=== PATIENT | female | born 1970 | race Caucasian/White ===

== ENCOUNTER 2017-08-19 15:57 | Observation (INO) | payer OTHER ==
[2017-08-19] MEDS ORDERED: ASPIRIN CHEW 81 MG TABLET PO STA (16:10)
--- NOTE | 2017-08-19 16:12 | ED Physician Documentation ---
PD HPI CHEST PAIN - Stated complaint Stated Complaint: CHEST PX/NAUSEA - Chief complaint Chief Complaint: Cardiac - History obtained from History obtained from: Patient - History of Present Illness Timing - onset: Other (She has been sick for a few days with cough and cold symptoms, with short of breath and may be running a fever the other night but that is gone. The last 2 days she has had increasing episodic nonexertional central chest pain. It is a sharp sensation in the front of the chest which is nonradiating last 1-2 minutes at a time. There is no particular pattern to it, does not seem to come with eating or with exertion. It has not been waking her up from sleep. She does have a pretty bad family history with regard to coronary disease, her father had an AL with a bypass in his 40s and his her brother also had an AL around age 50.) Review of Systems Ten Systems: 10 systems reviewed and negative Constitutional: reports: Reviewed and negative Throat: reports: Reviewed and negative Cardiac: reports: Chest pain / pressure, Palpitations. denies: Pedal edema, Calf pain Respiratory: reports: Cough. denies: Dyspnea GI: reports: Nausea. denies: Abdominal Pain PD PAST MEDICAL HISTORY - Past Medical History Past Medical History: Yes Endocrine/Autoimmune: HyPOthyroidism - Present Medications Home Medications: Ambulatory Orders Medication Instructions Recorded Confirmed Levothyroxine Sodium [Synthroid] 200 mcg PO DAILY 08/19/17 08/19/17 - Allergies Allergies/Adverse Reactions: Allergies Allergy/AdvReac Type Severity Reaction Status Date / Time meloxicam [From Mobic] Allergy Mild Unknown Verified 08/19/17 16:19 azithromycin [From Zithromax] Allergy Rash Verified 08/19/17 16:17 - Social History Does the pt drink ETOH?: No Does the pt have substance abuse?: No - Family History Family history: reports: CAD PD ED PE NORMAL - Vitals Vital signs reviewed: Yes - General General: Alert and oriented X 3, No acute distress - HEENT HEENT: PERRL, EOMI - Neck Neck: Supple, no meningeal sign, No bony TTP - Cardiac Cardiac: RRR, No murmur - Respiratory Respiratory: No respiratory distress, Clear bilaterally - Abdomen Abdomen: Soft, Non tender - Back Back: No CVA TTP, No spinal TTP - Extremities Extremities: No edema, No calf tenderness / cord - Neuro Neuro: Alert and oriented X 3, Normal speech - Psych Psych: Normal mood, Normal affect Results - Vitals Vitals: Vital Signs - 24 hr 08/19/17 16:01 Temperature 36.9 C Heart Rate 92 Respiratory 18 Rate Blood Pressure 128/89 H O2 Saturation 99 Oxygen O2 Source Room air - EKG (time done) 1602 Rate: Rate (enter#) (89) Rhythm: NSR Marana: Normal Intervals: Normal [place] QRS: Normal Ischemia: Normal ST segments. No: ST elevation c/w ischemia, ST depression, Q waves, T wave inversion Compare to prior EKG: Old EKG unavailable Computer interpretation: Agree with computer - Labs Labs: Laboratory Tests 08/19/17 08/19/17 08/19/17 16:13 16:13 16:13 WBC 9.9 RBC 4.69 Hgb 13.2 Hct 40.0 MCV 85.4 MCH 28.3 MCHC 33.1 RDW 13.7 Plt Count 354 MPV 6.7 L Neut # 6.7 H Lymph # 2.4 [place] # 0.5 Eos # 0.2 Baso # 0.1 Absolute Nucleated RBC 0.00 Nucleated RBC % 0.0 Sodium 137 Potassium 3.9 Chloride 105 Carbon Dioxide 24 Anion Gap 8.0 BUN 16 Creatinine 1.1 H Estimated GFR (MDRD) 53 L Glucose 121 H Calcium 9.0 Total Bilirubin 0.4 AST 19 ALT 19 Alkaline Phosphatase 73 Troponin I < 0.04 Total Protein 8.0 Albumin 3.9 Globulin 4.1 Albumin/Globulin Ratio 1.0 Lipase 21 L - Rads (name of study) 2v chest Radiology: EMP read contemporaneously (Bronchial wall thickening without pneumonia) PD MEDICAL DECISION MAKING - ED course ED course: 47-year-old woman with Crescendo atypical chest pain with pretty alarming family history. EKG is nonischemic and initial troponin negative. Given her risk factors I think it would be appropriate to place her in observation for formal rule out and the hospitalist was called at 4:49 PM. Departure - Departure Disposition: ED Place in Observation Clinical Impression: Chest pain Qualifiers: Chest pain type: unspecified Qualified Code(s): R07.9 - Chest pain, unspecified Condition: Stable
[2017-08-19 16:29] LABS: BASOPHILS # (AUTO) 0.1 10^3/uL (0.0-0.1); BASOPHILS % (AUTO) 0.7 %; EOSINOPHILS # (AUTO) 0.2 10^3/uL (0.0-0.7); HGB - HEMOGLOBIN 13.2 g/dL (12.0-16.0); LYMPHOCYTES # (AUTO) 2.4 10^3/uL (1.5-3.5); LYMPHOCYTES % (AUTO) 24.1 %; MEAN CORPUSCULAR HEMOGLOBIN 28.3 pg (27.0-31.0); MEAN CORPUSCULAR HGB CONC 33.1 g/dL (32.0-36.0); MEAN CORPUSCULAR VOLUME 85.4 fL (81.0-99.0); MEAN PLATELET VOLUME 6.7 fL (7.9-10.8); MONOCYTES # (AUTO) 0.5 10^3/uL (0.0-1.0); MONOCYTES % (AUTO) 5.2 %; NEUTROPHILS # (AUTO) 6.7 10^3/uL (1.5-6.6); RED BLOOD COUNT 4.69 10^6/uL (4.20-5.40); RED CELL DISTRIBUTION WIDTH 13.7 % (12.0-15.0); UNCORRECTED WHITE BLOOD COUNT 9.9 x10^3/uL; WHITE BLOOD COUNT 9.9 x10^3/uL (4.8-10.8)
[2017-08-19] MEDS ORDERED: ASPIRIN CHEW 81 MG TABLET ONE (16:29)
[2017-08-19 16:33] LABS: BILIRUBIN,TOTAL 0.4 mg/dL (0.2-1.0); CREATININE 1.1 mg/dL (0.4-1.0); POTASSIUM 3.9 mmol/L (3.5-5.0)
--- NOTE | 2017-08-19 16:35 | XRAY Preliminary Report ---
Exam: XR CHEST 2 VIEW PA/LAT IMPRESSION: 1. Bilateral central bronchial wall thickening could be compatible with reactive airways disease or b ronchitis. No radiographic evidence for superimposed pneumonia. [facility] SITE ID: [id number]
--- NOTE | 2017-08-19 16:38 | XRAY Report ---
EXAM: CHEST RADIOGRAPHY EXAM DATE: 08/19/2017 04:28 PM. CLINICAL HISTORY: Chest pain, cough. COMPARISON: None. TECHNIQUE: 2 views. FINDINGS: Lungs/Pleura: Bilateral central bronchial wall thickening could be compatible with reactive airways d isease or bronchitis. No evidence for superimposed focal airspace consolidation to suspect pneumonia. No pleural effusion or pneumothorax. Mediastinum: Heart and mediastinal contours are unremarkable. Other: None. IMPRESSION: 1. Bilateral central bronchial wall thickening could be compatible with reactive airways disease or b ronchitis. No radiographic evidence for superimposed pneumonia. [facility] Referring Provider Line: [phone] SITE ID: [id number]
[2017-08-19] MEDS ORDERED: TEMAZEPAM 15 MG CAPSULE PO PRN (17:19)
[2017-08-19] MEDS ORDERED: ACETAMINOPHEN 325 MG TABLET PO PRN (17:19)
[2017-08-19] MEDS ORDERED: SODIUM CHLORIDE FLUSH 0.9% 10 ML SYRINGE IVP PRN (17:19)
[2017-08-19] MEDS ORDERED: ONDANSETRON ODT 4 MG TABLET TL PRN (17:19)
--- NOTE | 2017-08-19 18:15 | HISTORY & PHYSICAL EXAMINATION ---
Chief Complaint - Chief Complaint Chief Complaint: chest pain Chest Pain Admission HPI - Admitted From Admitted from: ED - History Obtained From Records Reviewed: RN notes reviewed History obtained from: Patient Exam limitations: No limitations - History of Present Illness Severity at the worst: reports: Moderate Pain Quality: reports: Sharp, Crushing Context-Pain started w/: reports: Exertion. denies: Inspiration, Eating, Position Timing: reports: Abrupt onset, Intermittent Duration: reports: Minutes: (under 2 minutes with each episode.) Worsened by: reports: Movement (activity) Associated symptoms: reports: Shortness of air, Diaphoresis, Nausea, Feeling faint / dizzy, General Weakness, Palpitations, Cough HPI Comment/Other: Sonja Hare is a 47-year old female who is younger appearing than her stated age with excellent dentition. She has a past medical history of GERD, hypothyroidism, TARUN with [id number], nocturia, urinary incontinence, urinary frequency and tubal ligation. Patient came to the ED after having mid- sternal chest pain, with pressure that first began on (72 hours ago). This occurred while she [place]. The pain started as sharp, pressure pain in mid-sternum and then turned to an "electrical" sensation. Associated symptoms included feeling hot, clammy, tingling in bilateral legs, and nausea. She soon sat down and note the whole episode to last under 2 minutes. The nausea symptom was the most notable since she is not someone who becomes nauseated, most of her acquaintances tell her she has a strong stomach. On Sunday AM she woke up with a strong cough and has had symptoms of URI for about a week with a runny, stuffy nose, and sore throat. A similar episode happened a few months ago while she was in [facility] and had SOB with right arm pain after having traveled for several days in a row. She says she was worked up for chest pain and it was negative. We have faxed them for old records. She will be admitted for observation overnight. We are planning on a TTE, serial troponins, cholesterol , telemetry monitoring and carotid dopplers. We will decide after we obtain records whether a repeat stress test will be needed. Patient is now chest pain free, but instructed to tell her RN if symptoms come back. PMH/PSH - Past Medical History Cardiovascular: positive: High cholesterol, Angina, Arrhythmia Respiratory: positive: COPD Neuro: positive: None Endocrine/Autoimmune: positive: HyPOthyroidism GI: positive: GERD, Other (denies ever having a colonoscopy) RESEARCH HYDROLOGIST: positive: None : positive: Incontinence, Nocturia, Frequency. negative: Chronic bladder infection, Kidney stones HEENT: positive: None Psych: positive: None Musculoskeletal: positive: None Derm: positive: None MRSA Hx?: No - Past Surgical History /RESEARCH HYDROLOGIST: positive: Tubal ligation, Other Social & Family Hx - Living Situation Living Arrangement: At home Living Situation: With spouse/s.o. - Social History Does the pt smoke?: No Smoking Status: Former smoker (Age [age]) Does the pt drink ETOH?: No ETOH Use: Other (occasional, 2-4 per month.) Does the pt have substance abuse?: No - POLST Patient has POLST: No POLST Status: Full Code - Family History Family History: Mother: Alive and Well, Father: , CAD (Systemic schleroderma), [place], Brother: Alive and Well, [place] Meds/Allgy - Home Medications Home Medications: Ambulatory Orders Medication Instructions Recorded Confirmed Levothyroxine Sodium [Synthroid] 200 mcg PO DAILY 08/19/17 08/19/17 - Allergies Allergies/Adverse Reactions: Allergies Allergy/AdvReac Type Severity Reaction Status Date / Time meloxicam [From Mobic] Allergy Mild Unknown Verified 08/19/17 16:19 azithromycin [From Zithromax] Allergy Rash Verified 08/19/17 16:17 Review of Systems - Constitutional Constitutional: reports: Weakness, Diaphoresis - Eyes Eyes: reports: Blurred vision - Ears, Nose & Throat Ears, Nose & Throat: reports: Nasal congestion, Postnasal drainage, Other ( recent cough-URI) - Cardiovascular Cariovascular: reports: Irregular heart rate, Palpitations, Chest pain, Lightheadedness, Syncope, Exertional dyspnea, Decr. exercise tolerance - Respiratory Respiratory: reports: Cough, SOB with exertion - Gastrointestinal Gastrointestinal: reports: Abdominal distention, Nausea (recent and RARE for her , 1st time in her life.), Reflux/heartburn (history of GERD) - Genitourinary Genitourinary: reports: Dysuria, Frequency, Incontinence (fairly new.), Nocturia - Musculoskeletal Musculoskeletal: reports: Back pain, Muscle aches - Neurological Neurological: reports: Dizziness, Numbness - Psychiatric Psychiatric: reports: Anxiety - All Other Systems All Other Systems: reports: Reviewed and negative Exam - Vital Signs Reviewed Vital Signs: Yes Vital Signs: Vital Signs x48h Pulse Resp BP Pulse Ox 08/19/17 17:41 82 15 120/82 H 98 - Physical Exam General Appearance: positive: No acute distress, Alert Eyes Bilateral: positive: Normal inspection ENT: positive: ENT inspection nml, Pharynx nml, No signs of dehydration Neck: positive: Nml inspection, Thyroid nml, No JVD, Trachea midline Respiratory: positive: Chest non-tender, No respiratory distress, Breath sounds nml Cardiovascular: positive: Regular rate & rhythm, No murmur, No gallop Peripheral Pulses: positive: 2+ Abdomen: positive: Non-tender, No organomegaly, Nml bowel sounds, No distention Back: positive: Nml inspection Skin: positive: Color nml, No rash, Warm, Dry Extremities: positive: Non-tender, Full ROM, Nml appearance, No pedal edema Neurologic/Psychiatric: positive: Oriented x3, CN's nml (2-12), Motor nml, Sensation nml Reflexes: Bicep (R): 4+, Bicep (L): 4+, Knee (R): 4+, Knee (L): 4+, Ankle (R): 4 +, Ankle (L): 4+ Results - Lab Results Lab results reviewed: Yes Fish Bones: 08/19/17 16:13 08/19/17 16:13 - Diagnostic Imaging Results Diagnostic Imaging Results: positive: Prelim report reviewed, Final report reviewed Diagnostic Imaging Results Comments: Chest s-ray 08/19/17: FINDINGS: Lungs/Pleura: Bilateral central bronchial wall thickening could be compatible with reactive airways disease or bronchitis. No evidence for superimposed focal airspace consolidation to suspect pneumonia. No pleural effusion or pneumothorax. Mediastinum: Heart and mediastinal contours are unremarkable. IMPRESSION: 1. Bilateral central bronchial wall thickening could be compatible with reactive airways disease or bronchitis. No radiographic evidence for superimposed pneumonia. - EKG Results EKG Interpreted Independently: Yes EKG Comparison: positive: No prior EKG ARRA - Anticipated LOS Anticipated Stay Length: Less than 2 midnights - AMI - Statin at Admit Aspirin Prescribed on Admit: Yes - Stroke - Rehab Assessment Rehab services assessment to be ordered?: No Not Ordered - Medical Reason: Contraindicated - DVT/VTE - Prophylaxis VTE/DVT Device ordered at admit?: Yes VTE/DVT Prophylaxis med ordered at admit?: Yes CP/CHF Plan - Echo Plan to order an echo?: Yes - Plan Patient Problems: All Active Problems Chest pain (Acute) Plan: Chest pain, unspecified (R07.9)-Patient came to the ED after having mid-sternal chest pain, with pressure that first began on (72 hours ago). This occurred while she was walking [place] mall. 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 Associated symptoms included feeling hot, clammy, tingling in bilateral legs, and nausea. She soon sat down and notes the whole episode to last under 2 minutes. Several labs are ordered including GGT, TSH, seria troponins, D-dimer and cholesterol as part of this work up. Plan: We are attempting to obtain records from a [facility] since patient states she just had a stress test at that facility. Nitro SL, morphine IV and oxygen as needed for acute chest pain. Nursing is to obtain an EKG if chest pain symptoms are noticed. Hypothyroidism, unspecified (E03.9)- Patient takes 200mcg Synthroid daily. She admits to palpitations and fatigue, so a TSH was ordered. Plan: Obtain labs and may adjust dose depending on follow up labs. Obstructive sleep apnea (G47.33)- Patient states she has been prescribed a CPAP device but only wears it a few times per week. Plan: Oxygen overnight if patient is agreeable due to risk of altered airway clearance. Nocturia (R35.1)-Patient admits to waking up at least 2-3 times each night. In addition, patient states she has had problems with urgency, and stress incontinence. Patient has an intact uterus. Plan: Patient should seek further testing from her PCP. Code status: Full. DVT prophylaxis: SCDs and enoxaparin. -Over 60 minutes was spent on this admission including [id number] exam, patient/ education, and counseling/plan.
[2017-08-19 19:22] LABS: CHOLESTEROL 234 mg/dL; HDL CHOLESTEROL 51 mg/dL; LDL CHOLESTEROL,DIRECT 163 mg/dL
[2017-08-19 19:30] LABS: HEMOGLOBIN A1C 0.52 g/dL
[2017-08-19] MEDS ORDERED: MORPHINE 2 MG/ML SYRINGE IVP PRN (19:54)
[2017-08-19] MEDS ORDERED: NITROGLYCERIN SL 0.4 MG TABLET SL PRN (19:55)
[2017-08-19] MEDS ORDERED: ALPRAZolam 0.25 MG TABLET PO PRN (19:57)
[2017-08-19] MEDS: ASPIRIN EC 325 MG TABLET PO SCH (19:59)
[2017-08-19 20:57] LABS: HCG UR QUAL NEGATIVE
[2017-08-19] MEDS ORDERED: ATORVASTATIN 40 MG TABLET PO SCH (21:00)
[2017-08-19] MEDS: SODIUM CHLORIDE FLUSH 0.9% 10 ML SYRINGE IVP SCH (21:26)
[2017-08-19] MEDS ORDERED: BUTALB/ACETAM/CAFF 50/325/40MG TABLET PO PRN (21:39)
[2017-08-20] MEDS: SODIUM CHLORIDE FLUSH 0.9% 10 ML SYRINGE IVP SCH ×2 (06:48→13:40)
[2017-08-20] MEDS ORDERED: PANTOPRAZOLE 40 MG TABLET PO SCH (07:00)
--- NOTE | 2017-08-20 08:14 | DISCHARGE SUMMARY ---
Discharge Summary Admit Date: 08/19/17 Discharge Date: 08/20/17 Discharging Provider: MISSAEL White Primary Care Provider: Clarke Baker Code Status: Attempt Resuscitation Condition at Discharge: Good Discharge Disposition: 01 Home, Self Care - DIAGNOSES Admission Diagnoses: Chest pain, unspecified (R07.9) Hypothyroidism, unspecified (E03.9) Obstructive sleep apnea (G47.33) Nocturia (R35.1) [facility] 96 hour attestation: I believe in good ana based on my medical decision making that this patient is reasonably expected to be discharged and/or transferred to another hospital within 96 hours. Discharge Diagnoses with Status of Each Condition: Chest pain (R07.9) -ongoing, controlled. Hypothyroidism (E03.9) ongoing, stable. TARUN (obstructive sleep apnea) (G47.33)-ongoing, non-compliant. Nocturia more than twice per night (R35.1) -ongoing, stable. Hyperlipidemia with low HDL (E78.5)-ongoing, encouraged to treat. - HPI History of Present Illness: Sonja Hare is a 47-year old female who is younger appearing than her stated age with excellent dentition. She has a past medical history of GERD, hypothyroidism, TARUN with [id number]-[id number], nocturia, urinary incontinence, urinary frequency and tubal ligation. Patient came to the ED after having mid- sternal chest pain, with pressure that first began on (72 hours ago). This occurred while she was [place]. The pain started as sharp, pressure pain in mid-sternum and then turned to an "electrical" sensation. Associated symptoms included feeling hot, clammy, tingling in bilateral legs, and nausea. She soon sat down and note the whole episode to last under 2 minutes. The nausea symptom was the most notable since she is not someone who becomes nauseated, most of her acquaintances tell her she has a strong stomach. On Sunday AM she woke up with a strong cough and has had symptoms of URI for about a week with a runny, stuffy nose, and sore throat. A similar episode happened a few months ago while she was in [facility] and had SOB with right arm pain after having traveled for several days in a row. She says she was worked up for chest pain and it was negative. We have faxed them for old records. She will be admitted for observation overnight. We are planning on a TTE, serial troponins, cholesterol , telemetry monitoring and carotid dopplers. We will decide after we obtain records whether a repeat stress test will be needed. Patient is now chest pain free, but instructed to tell her RN if symptoms come back. - CONSULTS | PROCEDURES Procedures: Walking stress test with nuclear imaging. - HOSPITAL COURSE Hospital Course: Sonja was admitted for observation for acute chest pain, rule out coronary cause. She stated that she needed to get to work by 0530AM and wanted to make sure to be there on time. Medical and nursing staff convinced her to stay to provide her the best quality of care. MD Hospitalist, Dr. Conway also met with patient to re-assure her of the necessity of her upcoming stress test. She was monitored on telemetry overnight which showed no ectopy and a normal sinus rhythm in the 80's. She had no abnormal vital signs and remained afebrile. She was given a statin in the first evening, and refused it stating that "she will follow up with her PCP", after she leaves here. Dr. Clrake Baker's office was called and I spoke with her nurse to confirm dosing changes of her levothyroxine and latest lab results. Dr. Baker can expect a faxed copy of this discharge summary, and is to call with questions. Patient completed a stress test-results pending. She was transported via private car home with in stable condition with follow up recommendations. - ALLERGIES Allergies/Adverse Reactions: Allergies Allergy/AdvReac Type Severity Reaction Status Date / Time meloxicam [From Mobic] Allergy Mild Unknown Verified 08/19/17 16:19 azithromycin [From Zithromax] Allergy Rash Verified 08/19/17 16:17 - MEDICATIONS Home Medications: Ambulatory Orders Medication Instructions Recorded Confirmed Atorvastatin [Lipitor] 40 mg PO QPM #30 tablet 08/20/17 Levothyroxine [Synthroid] 88 mcg PO QDAC #30 tablet 08/20/17 Levothyroxine [Synthroid] 100 mcg PO QDAC #30 tablet 08/20/17 - PHYSICAL EXAM AT DISCHARGE General Appearance: positive: No acute distress, Alert Eyes Bilateral: positive: Normal inspection, PERRL ENT: positive: ENT inspection nml, Pharynx nml, No signs of dehydration Neck: positive: Nml inspection, Thyroid nml, No JVD, Trachea midline Respiratory: positive: Chest non-tender, No respiratory distress, Breath sounds nml Cardiovascular: positive: Regular rate & rhythm, No gallop Peripheral Pulses: positive: 2+ Abdomen: positive: Non-tender, No organomegaly, Nml bowel sounds, No distention Back: positive: Nml inspection Skin: positive: Color nml, No rash, Warm, Dry Extremities: positive: Non-tender, Full ROM, Nml appearance, No pedal edema Neurologic/Psychiatric: positive: Oriented x3, CN's nml (2-12), Motor nml, Sensation nml, Depressed mood/affect Reflexes: Bicep (R): 4+, Bicep (L): 4+ - LABS Result Diagrams: 08/19/17 16:13 08/19/17 16:13 - DIAGNOSTIC IMAGING Diagnostic Imaging Results: Final report reviewed Diagnostic Imaging Results Comments: Resting Echocardiogram: The LV size is normal. LV wall thickness is normal. Overall LV systolic function is normal with an EF of 65-70%. No regional wall motion abnormalities are seen. The RV size is normal, RA normal, no evidence of aortic stenosis. There is trace mitral regurgitation. Trace tricuspid regurgitation is present. Normal RV systolic pressure <35mmHg. The RVSP at rest is 24mmHg. The ascending aorta is dilated measuring up to 3.4cm. The IVC diameter appears reduced consistant with a volume contracted state. Chest x-ray 2-view 08/19/17: FINDINGS: Lungs/Pleura: Bilateral central bronchial wall thickening could be compatible with reactive airways disease or bronchitis. No evidence for superimposed focal airspace consolidation to suspect pneumonia. No pleural effusion or pneumothorax. Mediastinum: Heart and mediastinal contours are unremarkable. IMPRESSION: 1. Bilateral central bronchial wall thickening could be compatible with reactive airways disease or bronchitis. No radiographic evidence for superimposed pneumonia. Treadmill and nuclear stress test: Normal. - FOLLOW UP Follow Up: Please decrease your daily Synthroid dose to 188mcg daily. Your latest adjustment was made on 07/12/17 and you were instructed to re-check your TSH ~08/17/17. Your TSH is 0.19 (previously 0.06) which is considered low. After speaking with your clinic we determined your new dose to be cut back to 188mcg. Your cholesterol levels were found to be high, similar to your latest clinic results. The major use of statins is in the primary and secondary prevention of cardiovascular disease. Statins provide 3 major benefits and they include; Plaque stabilization- when plaques rupture, or break loose from the blood vessels they float away and can cause a blockage in the vessels that supply your heart with blood. Reduced inflammation- CRP levels are used to evaluate inflammation specific to predicting a progression of atherosclerosis. Reversal of endothelial dysfunction and decreased thrombogenicity- in other words, it reduces platelet activation (the sticky part of your blood). Please take a baby aspirin each day 81mg. Please see your PCP by the end of this week as a follow up to this hospitalization, and he is expecting you. Follow up with the sleep lab to help you be more compliant with wearing your sleep CPAP for obstructive sleep apnea. If this goes untreated, it has been found to cause heart rhythm problems as it restricts oxygen to the heart muscle. Further work-up may be necessary to evaluate the cause of your chest pain. - TIME SPENT Time Spent in Discharge (Minutes): 60
[2017-08-20] MEDS ORDERED: POLYETHYLENE GLYCOL 3350 17 GM PACKET PO SCH (09:00)
[2017-08-20] MEDS ORDERED: LEVOTHYROXINE 100 MCG TABLET PO SCH ×2 (09:00)
[2017-08-20] MEDS ORDERED: LEVOTHYROXINE 88 MCG TABLET PO SCH (09:00)
[2017-08-20] MEDS ORDERED: ENOXAPARIN 40 MG/0.4 ML SYRINGE SUBQ SCH (09:00)
[2017-08-20] MEDS: ASPIRIN EC 325 MG TABLET PO SCH (09:05)
--- NOTE | 2017-08-20 13:07 | Discharge Plan ---
Discharge Plan Disposition: 01 Home, Self Care Condition: Good Prescriptions: Atorvastatin [Lipitor] 40 mg PO QPM #30 tablet Levothyroxine [Synthroid] 100 mcg PO QDAC #30 tablet Levothyroxine [Synthroid] 88 mcg PO QDAC #30 tablet Diet: Cardiac Activity Restrictions: No Restrictions Shower Restrictions: No Driving Restrictions: No Weight Bearing: Full Weight Instruction Topics: Atorvastatin tablets, Levothyroxine tablets, Nitroglycerin sublingual tablets, Angina Unstable, Angina, Food Cholesterol, ED Diet Cholesterol Lowering Additional Instructions or Follow Up instructions: You came to the hospital after having acute chest pain. Given your risk factors , a coronary work up was necessary. The records from your medical care in [place] was reviewed. You completed a stress test with nuclear imaging. Both your treadmill and nuclear testing came back NORMAL. As per my conversation with Dr. Clarke Baker's clinic; Please decrease your daily Synthroid dose to 188mcg daily. Your latest adjustment was made on 07/12/17 and you were instructed to re-check your TSH ~08/17/17. Your TSH is 0.19 (previously 0.06) which is considered low. After speaking with your clinic we determined your new dose to be cut back to 188mcg. Your cholesterol levels were found to be high, similar to your latest clinic results. The major use of statins is in the primary and secondary prevention of cardiovascular disease. Statins provide 3 major benefits and they include; Plaque stabilization- when plaques rupture, or break loose from the blood vessels they float away and can cause a blockage in the vessels that supply your heart with blood. Reduced inflammation- CRP levels are used to evaluate inflammation specific to predicting a progression of atherosclerosis. Reversal of endothelial dysfunction and decreased thrombogenicity- in other words, it reduces platelet activation (the sticky part of your blood). Please take a baby aspirin each day 81mg. Please see your PCP by the end of this week as a follow up to this hospitalization, and he is expecting you. Follow up with the sleep lab to help you be more compliant with wearing your sleep CPAP for obstructive sleep apnea. If this goes untreated, it has been found to cause heart rhythm problems as it restricts oxygen to the heart muscle. Further work-up may be necessary to evaluate the cause of your chest pain. No Smoking: If you smoke, Please STOP! Call for help. Follow-up with: CLARKE BAKER [Primary Care Provider] -
--- NOTE | 2017-08-20 17:01 | PROCEDURE REPORT ---
Hospitalist Procedure Note - Procedure Note Procedure Note: PATIENT NAME: Sonja Hare : 68 PROCEDURE DATE: 08/20/17 After signing informed consent, the patient underwent standard treadmill stress testing using a 3-minute stage Manjinder protocol. Resting heart rate 97. Peak heart rate 152 (87% predicted maximum heart rate for age). Resting blood pressure 108/65. Peak blood pressure 144/55. RPP 21,888. The patient exercised for 5 minutes and 13 seconds. She achieved 7 mets. Patient had mild shortness of breath, no chest pain or nausea. EKG at rest: Normal sinus rhythm, WNL EKG at peak: Upsloping inferior ST scooping depressions (not specific for ischemia) IMPRESSION: Fair aerobic exercise tolerance. No reproducing of the patient's chest pain. No ischemic ST segment changes at a good target heart rate. Nuclear images reported separately.
--- NOTE | 2017-08-20 17:07 | Nuclear Medicine Prelim Report ---
Exam: NM MYOCARDIAL PERFUSION STR/RST IMPRESSION: 1. No fixed or reversible perfusion defect. 2. Normal left ventricular ejection fraction of 67%. 3. Normal segmental and global wall motion. 4. Normal left ventricular cavity size, no change with stress. [facility] SITE ID: [id number]
--- NOTE | 2017-08-20 17:10 | Nuclear Medicine Report ---
EXAM: SINGLE-ISOTOPE EXERCISE STRESS TEST. SINGLE-ISOTOPE AND ONE-DAY REST/STRESS MYOCARDIAL PERFUSION SCAN S WITH TOMOGRAPHIC IMAGING, QUANTITATIVE ANALYSIS, WALL MOTION ANALYSIS AND CALCULATION OF EJECTION F RACTION. EXAM DATE: 08/20/2017 03:33 PM. CLINICAL HISTORY: Chest pain COMPARISON: None. TECHNIQUE: A rest myocardial perfusion scan was done with tomography after the intravenous administration of 10. 2 mCi Tc-99m sestamibi. The maximum heart rate was 152 bpm, which was 90% of the maximum predicted heart rate of 170 bpm. At approximately peak heart rate, 42.8 mCi of Tc-99m sestamibi was injected for stress myocardial perfu kristina scan. Motion correction was applied when appropriate. Gated tomographic images were obtained for wall motion analysis and computation of left ventricular e jection fraction. FINDINGS: No fixed or reversible perfusion defect. Normal cardiac wall motion. Normal left ventricular chamber size. Cardiac ejection fraction is 67%. IMPRESSION: 1. No fixed or reversible perfusion defect. 2. Normal left ventricular ejection fraction of 67%. 3. Normal segmental and global wall motion. 4. Normal left ventricular cavity size, no change with stress. [facility] Referring Provider Line: [phone] SITE ID: [id number]
[2017-08-20 17:27] VITALS: BP 115/80
== END 2017-08-20 17:15 | disposition home or self-care (01) ==
LOC: ED 15:57 → OBS 17:19
PROVIDERS: ADMIT Nurse Practitioner; ATTEND Nurse Practitioner
DX: R07.9 Chest pain, unspecified (principal); E03.9 Hypothyroidism, unspecified; G47.33 Obstructive sleep apnea (adult) (pediatric); E78.00 Pure hypercholesterolemia, unspecified; R35.1 Nocturia; R32 Unspecified urinary incontinence; R35.0 Frequency of micturition; Z87.891 Personal history of nicotine dependence; Z82.49 Family history of ischemic heart disease and other diseases of the circulatory system; Z79.899 Other long term (current) drug therapy
CPT/HCPCS: 36415; 71020; 78452; 80053; 80306; 81025; 82465; 82553; 82977; 83036; 83690; 83718; 83721; 83735; 83880; 84100; 84439; 84443; 84481; 84484; 85025; 85379; 93005; 93017; 93306; 99283; 99285; A9270; A9500; G0378; 99284

== ENCOUNTER 2018-07-03 12:26 | Outpatient (CLI) | payer OTHER | END 2018-07-03 12:27 | disposition critical access hospital (66) | LOC: EMS 12:26 | PROVIDERS: ATTEND Surgery | DX: R10.13 Epigastric pain (principal); R21 Rash and other nonspecific skin eruption | CPT/HCPCS: A0425; A0427 ==

== ENCOUNTER 2018-07-03 12:49 | Emergency (ER) | payer OTHER ==
[2018-07-03] MEDS ORDERED: ASPIRIN CHEW 81 MG TABLET PO STA (13:57)
[2018-07-03] MEDS ORDERED: MORPHINE 2 MG/ML CARPUJECT IVP STA (13:58)
[2018-07-03] MEDS ORDERED: ONDANSETRON 4 MG/2 ML VIAL IVP STA (13:58)
--- NOTE | 2018-07-03 14:02 | ED Physician Documentation ---
History of Present Illness - Stated complaint Stated Complaint: HEARTBURN - Chief complaint Chief Complaint: General - Additonal information Additional information: hx from pt 47 f no personal hx CAD but prior smoker and HLD and strong fhx CAD (dad brother in 40s) denies preg sp tubal no recent travel ate nut butter at 9 am at 11 AM developed excruciating burning low chest upper abd pain radiating between her shoulder blades with dizziness flushing to face, itchy hands and soa no known allergen etc sx still present but milder no fever no NVD now but has last week no leg swelling Review of Systems Constitutional: denies: Fever, Chills Cardiac: reports: Chest pain / pressure Respiratory: reports: Dyspnea GI: reports: Abdominal Pain. 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 : Incontinence, Nocturia, Frequency HEENT: None Psych: None Musculoskeletal: None Derm: None - Past Surgical History Past Surgical History: Yes /EQUIPMENT OPERATION INSTRUCTOR: Tubal ligation, Other - Present Medications Home Medications: Ambulatory Orders Medication Instructions Recorded Confirmed Levothyroxine [Synthroid] 200 mcg PO QDAC 07/03/18 Sucralfate 1 gm PO ACHS #120 tablet 07/03/18 raNITIdine [Zantac] 150 mg PO BID #60 tablet 07/03/18 - Allergies Allergies/Adverse Reactions: Allergies Allergy/AdvReac Type Severity Reaction Status Date / Time meloxicam [From Mobic] Allergy Mild Unknown Verified 08/19/17 16:19 azithromycin [From Zithromax] Allergy Rash Verified 07/03/18 12:55 - Social History Does the pt smoke?: No Smoking Status: Former smoker Does the pt drink ETOH?: Yes Does the pt have substance abuse?: No - Immunizations Immunizations are current?: No Immunizations: TDAP >10years/unknown - POLST Patient has POLST: No POLST Status: Full Code PD ED PE NORMAL - Vitals Vital signs reviewed: Yes - General General: Alert and oriented X 3 - HEENT HEENT: PERRL - Neck Neck: Supple, no meningeal sign - Cardiac Cardiac: RRR - Respiratory Respiratory: No respiratory distress, Clear bilaterally - Abdomen Abdomen: Soft, Non tender - Derm Derm: Normal color - Extremities Extremities: No deformity, No edema, No calf tenderness / cord - Neuro Neuro: Alert and oriented X 3, Other (strong equal pulses) Results - Vitals Vitals: Vital Signs - 24 hr 07/03/18 07/03/18 07/03/18 12:50 13:44 16:48 Temperature 36.5 C Heart Rate 85 70 66 Respiratory 18 19 Rate Blood Pressure 129/90 H 128/83 H O2 Saturation 100 97 07/03/18 07/03/18 07/03/18 17:02 17:39 17:41 Temperature 36.0 C L Heart Rate 71 64 Respiratory 13 15 Rate Blood Pressure 123/74 O2 Saturation 100 99 Oxygen O2 Source Room air - EKG (time done) 1254 Rate: Rate (enter#) (76) Rhythm: NSR [place]: Normal Intervals: Normal ND QRS: Normal Ischemia: Normal ST segments - Labs Labs: Laboratory Tests 07/03/18 07/03/18 07/03/18 14:13 14:13 14:13 WBC 8.3 RBC 4.37 Hgb 12.5 Hct 37.0 MCV 84.6 MCH 28.7 MCHC 33.9 RDW 15.1 H Plt Count 314 MPV 6.7 L Neut # (Auto) 6.2 Lymph # (Auto) 1.4 L [place] # (Auto) 0.4 Eos # (Auto) 0.1 Baso # (Auto) 0.1 Absolute Nucleated RBC 0.00 Nucleated RBC % 0.0 Sodium 136 Potassium 3.8 Chloride 104 Carbon Dioxide 24 Anion Gap 8.0 BUN 17 Creatinine 0.6 Estimated GFR (MDRD) 107 Glucose 97 Calcium 8.7 Total Bilirubin 0.2 AST 16 ALT 16 Alkaline Phosphatase 69 Troponin I < 0.04 Total Protein 7.5 Albumin 3.8 Globulin 3.7 Albumin/Globulin Ratio 1.0 Lipase 24 07/03/18 15:10 WBC RBC Hgb Hct MCV MCH MCHC RDW Plt Count MPV Neut # (Auto) Lymph # (Auto) [place] # (Auto) Eos # (Auto) Baso # (Auto) Absolute Nucleated RBC Nucleated RBC % Sodium Potassium Chloride Carbon Dioxide Anion Gap BUN Creatinine Estimated GFR (MDRD) Glucose Calcium Total Bilirubin AST ALT Alkaline Phosphatase Troponin I < 0.04 Total Protein Albumin Globulin Albumin/Globulin Ratio Lipase PD MEDICAL DECISION MAKING - ED course ED course: EKG no acute ischemia trop # 1 neg heart score 3 so lower risk I reviewed her CP admit from 08/26 and she had a normal echo, neg EST, and neg nuc stress test - does not completely rule out ACS but is reassuring - so got a 4 hr trop in the ER and it was neg too considered biliary colic / pearl - abd sono contracted GB so limited but no stones, abn ducts or pericholecystic fluid seen planned to get CTA chest abd to evla aorta as well as further eval GB but pt states she does not want a CT if at all possible she states that she had a CT chest just a few months ago that did not show an aneurysm which is reassuring (not done here) - also she has had several prior CTs, one for PE in [place] and another of her head for unilateral tinnitus I explained we could do CXR instead whcih would be less radiation but it would not be as accurate evaluating the aorta she prefers just a CXR CXR nl - tight mediastinum, no cap or effusion PERC neg too so after an extensive ED work up it seems unliekly that this CP is ACS PE or aneurysm/dissection she describes the pain as burning so I had ordered pepcidc and a GI cocktail but nirse now tells me pt refused those medications Departure - Departure Disposition: Home, Self Care Clinical Impression: Chest pain Qualifiers: Chest pain type: unspecified Qualified Code(s): R07.9 - Chest pain, unspecified Condition: Good Instructions: ED Chest Pain Atypical Unkn Cause, ED GERD Follow-Up: SONIA PLUMMER [Primary Care Provider] - Prescriptions: raNITIdine [Zantac] 150 mg PO BID #60 tablet Sucralfate 1 gm PO ACHS #120 tablet Comments: All of your tests are very reassuring. It does not look like this pain was due to a heart attack, a blood clot in your lungs, a tear or aneurysm of your aorta or gallbladder problems. It might be heart burn - you did feel better after medications for heartburn In any case, given the reassuring work up, I think it is safe for you to go home. Please follow up with your PMD for a recheck before the weekend. Return if worse Forms: Activity restrictions Discharge Date/Time: 07/03/18 17:43
[2018-07-03 14:24] LABS: BASOPHILS # (AUTO) 0.1 10^3/uL (0.0-0.1); BASOPHILS % (AUTO) 1.4 %; EOSINOPHILS # (AUTO) 0.1 10^3/uL (0.0-0.7); EOSINOPHILS % (AUTO) 0.9 %; HGB - HEMOGLOBIN 12.5 g/dL (12.0-16.0); LYMPHOCYTES # (AUTO) 1.4 10^3/uL (1.5-3.5); LYMPHOCYTES % (AUTO) 17.4 %; MEAN CORPUSCULAR HEMOGLOBIN 28.7 pg (27.0-31.0); MEAN CORPUSCULAR HGB CONC 33.9 g/dL (32.0-36.0); MEAN CORPUSCULAR VOLUME 84.6 fL (81.0-99.0); MEAN PLATELET VOLUME 6.7 fL (7.9-10.8); MONOCYTES # (AUTO) 0.4 10^3/uL (0.0-1.0); MONOCYTES % (AUTO) 5.3 %; NEUTROPHILS # (AUTO) 6.2 10^3/uL (1.5-6.6); PLT - PLATELET COUNT 314 10^3/uL (130-450); RED BLOOD COUNT 4.37 10^6/uL (4.20-5.40); RED CELL DISTRIBUTION WIDTH 15.1 % (12.0-15.0); WHITE BLOOD COUNT 8.3 x10^3/uL (4.8-10.8)
[2018-07-03 14:42] LABS: ALBUMIN 3.8 g/dL (3.2-5.5); BILIRUBIN,TOTAL 0.2 mg/dL (0.2-1.0); CALCIUM 8.7 mg/dL (8.5-10.3); CREATININE 0.6 mg/dL (0.4-1.0); TOTAL PROTEIN 7.5 g/dL (6.7-8.2)
[2018-07-03] MEDS ORDERED: HYDROcod/ACETAM 5/325 MG TABLET PO STA (14:42)
--- NOTE | 2018-07-03 14:45 | Ultrasound Report ---
Reason: epigastric pain to back after nut butter Procedure Date: 07/03/2018 Accession Number: [id number] / [id number] Procedure: US - Abdomen Limited CPT Code: FULL RESULT: EXAM: ABDOMEN ULTRASOUND LIMITED, RUQ EXAM DATE: 07/03/2018 02:34 PM. CLINICAL HISTORY: Epigastric pain to back after nut butter. COMPARISON: None available. TECHNIQUE: Real-time scanning was performed with static images obtained. FINDINGS: Liver: Normal in size and echotexture. 16.6 cm. Main portal vein flow: Hepatopetal. Gallbladder: The gallbladder is contracted. No definite stones visualized. No pericholecystic fluid. Sonographic Barillas's sign is negative. Biliary System: CBD measures 3 mm. No intrahepatic or extrahepatic ductal dilatation. Other: The right kidney measures 9.9 cm in length. No hydronephrosis or visualized nephrolithiasis. IMPRESSION: Contracted appearance of the gallbladder, which limits evaluation. No definite cholelithiasis or evidence of acute cholecystitis. [facility]
[2018-07-03] MEDS ORDERED: IOPAMIDOL-300 100 ML VIAL ONE (15:04)
[2018-07-03] MEDS ORDERED: MAG HYDROX/AL HYDROX/SIMETH 30 ML UDC PO STA ×2 (15:14→16:54)
[2018-07-03] MEDS ORDERED: LIDOCAINE VISCOUS 2% 15 ML UDC MM STA ×2 (15:14→16:53)
[2018-07-03] MEDS ORDERED: FAMOTIDINE 20 MG/50 ML 50 ML IV ONE (15:14)
--- NOTE | 2018-07-03 15:38 | XRAY Report ---
Reason: cp Procedure Date: 07/03/2018 Accession Number: [id number] / [id number] Procedure: XR - Chest 2 View X-Ray CPT Code: 41566 FULL RESULT: EXAM: CHEST RADIOGRAPHY EXAM DATE: 07/03/2018 03:26 PM. CLINICAL HISTORY: Chest pain and heartburn COMPARISON: CHEST 2 VIEW PA/LAT 08/19/2017 4:16 PM. TECHNIQUE: 2 views. FINDINGS: Lungs/Pleura: No focal opacities evident. No pleural effusion. No pneumothorax. Normal volumes. Mediastinum: Heart and mediastinal contours are unremarkable. Other: Rounded sclerotic lesion seen at the left proximal humerus, unchanged, could represent enchondroma. IMPRESSION: No acute cardiopulmonary disease seen. [facility]
[2018-07-03 17:44] VITALS: BP 123/74
[2018-07-03] MEDS ORDERED: FAMOTIDINE 20 MG/50 ML 50 ML IV SCH (21:00)
== END 2018-07-03 17:43 | disposition home or self-care (01) ==
LOC: EDUNIT# → ED 12:49
DX: R07.9 Chest pain, unspecified (principal); E78.00 Pure hypercholesterolemia, unspecified; Z82.49 Family history of ischemic heart disease and other diseases of the circulatory system; Z87.891 Personal history of nicotine dependence
CPT/HCPCS: 36415; 71046; 76705; 80053; 83690; 84484; 85025; 93005; 96365; 99283; 99284; A9270

== ENCOUNTER 2018-10-16 11:05 | Emergency (ER) | payer OTHER ==
[2018-10-16 11:37] LABS: BASOPHILS # (AUTO) 0.1 10^3/uL (0.0-0.1); BASOPHILS % (AUTO) 1.1 %; EOSINOPHILS # (AUTO) 0.2 10^3/uL (0.0-0.7); EOSINOPHILS % (AUTO) 2.3 %; HGB - HEMOGLOBIN 12.9 g/dL (12.0-16.0); LYMPHOCYTES # (AUTO) 1.4 10^3/uL (1.5-3.5); LYMPHOCYTES % (AUTO) 21.9 %; MEAN CORPUSCULAR HEMOGLOBIN 28.3 pg (27.0-31.0); MEAN CORPUSCULAR HGB CONC 33.3 g/dL (32.0-36.0); MEAN CORPUSCULAR VOLUME 84.8 fL (81.0-99.0); MEAN PLATELET VOLUME 6.7 fL (7.9-10.8); MONOCYTES # (AUTO) 0.4 10^3/uL (0.0-1.0); MONOCYTES % (AUTO) 6.4 %; NEUTROPHILS # (AUTO) 4.5 10^3/uL (1.5-6.6); NEUTROPHILS % (AUTO) 68.3 %; PLT - PLATELET COUNT 318 10^3/uL (130-450); RED BLOOD COUNT 4.55 10^6/uL (4.20-5.40); RED CELL DISTRIBUTION WIDTH 14.4 % (12.0-15.0); WHITE BLOOD COUNT 6.5 x10^3/uL (4.8-10.8)
[2018-10-16 11:50] LABS: ALBUMIN 3.9 g/dL (3.2-5.5); BILIRUBIN,TOTAL 0.5 mg/dL (0.2-1.0); CALCIUM 9.1 mg/dL (8.5-10.3); CREATININE 0.6 mg/dL (0.4-1.0); TOTAL PROTEIN 7.8 g/dL (6.7-8.2)
[2018-10-16 11:51] LABS: HCG UR QUAL NEGATIVE
--- NOTE | 2018-10-16 12:25 | ED Physician Documentation ---
PD HPI FEMALE - Stated complaint Stated Complaint: FEMALE - Chief complaint Chief Complaint: Abd Pain - History obtained from History obtained from: Patient - History of Present Illness Timing - onset: Today (Patient states she has been having irregular menses for the past 2-3 months and in the past month has had 3 menstrual type periods. She states the last one was for 5 days ago and had been a little bit heavier than a regular. But it seemed to taper off the down to just light bleeding. She had a light pad in today and abruptly had some lower abdominal cramping and then significant vaginal bleeding that soaked the pad and had clots to it. She states she had another episode about a half an hour after that with a large amount of bleeding and clots as well. She is having some lower abdominal cramping. She denied any lightheadedness. She denies any vaginal discharge.) Timing - details: Abrupt onset, Still present (she says bleeding is tapering now with just small amount the past half hour.) Associated symptoms: Pelvic pain, Vaginal bleeding. No: Fever, Abdominal pain, Vaginal discharge, Genital sore/lesion, Dysuria Similar symptoms before: No diagnosis (has had irregular bleeding/periods the past few months.) Recently seen: Not recently seen Review of Systems Constitutional: denies: Fever, Chills, Myalgias Nose: denies: Rhinorrhea / runny nose, Congestion Throat: denies: Sore throat Cardiac: denies: Chest pain / pressure Respiratory: denies: Cough GI: denies: Nausea, Vomiting, Constipation, Diarrhea : reports: LMP (current), Irregular menses. 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: Tubal ligation, Other - Present Medications Home Medications: Ambulatory Orders Medication Instructions Recorded Confirmed Levothyroxine [Synthroid] 200 mcg PO QDAC 07/03/18 - Allergies Allergies/Adverse Reactions: Allergies Allergy/AdvReac Type Severity Reaction Status Date / Time meloxicam [From Mobic] Allergy Mild Unknown Verified 10/16/18 11:12 azithromycin [From Zithromax] Allergy Rash Verified 10/16/18 11:12 - Social History Does the pt smoke?: No Smoking Status: Never smoker Does the pt drink ETOH?: Yes Does the pt have substance abuse?: No - Immunizations Immunizations are current?: No Immunizations: TDAP >10years/unknown - POLST Patient has POLST: No POLST Status: Full Code PD ED PE NORMAL - Vitals Vital signs reviewed: Yes - General General: Alert and oriented X 3, No acute distress, Well developed/nourished - Neck Neck: Supple, no meningeal sign, No adenopathy - Cardiac Cardiac: RRR, No murmur - Respiratory Respiratory: Clear bilaterally - Abdomen Abdomen: Normal bowel sounds, Soft, Non tender, Non distended, No organomegaly - Female Female : Deferred - Rectal Rectal: Deferred - Back Back: No CVA TTP - Derm Derm: Normal color, Warm and dry - Extremities Extremities: No tenderness to palpate, Normal ROM s pain Results - Vitals Vitals: Oxygen O2 Source Room air - Labs Labs: Laboratory Tests 10/16/18 10/16/18 10/16/18 11:23 11:25 11:25 WBC 6.5 RBC 4.55 Hgb 12.9 Hct 38.6 MCV 84.8 MCH 28.3 MCHC 33.3 RDW 14.4 Plt Count 318 MPV 6.7 L Neut # (Auto) 4.5 Lymph # (Auto) 1.4 L [place] # (Auto) 0.4 Eos # (Auto) 0.2 Baso # (Auto) 0.1 Absolute Nucleated RBC 0.00 Nucleated RBC % 0.0 Sodium 137 Potassium 3.8 Chloride 101 Carbon Dioxide 27 Anion Gap 9.0 BUN 19 Creatinine 0.6 Estimated GFR (MDRD) 106 Glucose 113 H Calcium 9.1 Total Bilirubin 0.5 AST 17 ALT 15 Alkaline Phosphatase 70 Total Protein 7.8 Albumin 3.9 Globulin 3.9 Albumin/Globulin Ratio 1.0 Lipase 31 Ur Specific Spade 1.020 Urine HCG, Qual NEGATIVE Blood Type 10/16/18 11:25 WBC RBC Hgb Hct MCV MCH MCHC RDW Plt Count MPV Neut # (Auto) Lymph # (Auto) [place] # (Auto) Eos # (Auto) Baso # (Auto) Absolute Nucleated RBC Nucleated RBC % Sodium Potassium Chloride Carbon Dioxide Anion Gap BUN Creatinine Estimated GFR (MDRD) Glucose Calcium Total Bilirubin AST ALT Alkaline Phosphatase Total Protein Albumin Globulin Albumin/Globulin Ratio Lipase Ur Specific [place] Urine HCG, Qual Blood Type A POSITIVE - Rads (name of study) pelvic U/S Radiology: Prelim report reviewed (fibroids noted in uterus. No free fluid. Ovaries appear normal. ) PD MEDICAL DECISION MAKING - ED course Complexity details: reviewed results, considered differential (will get U/S to eval for structural such as fibroids, polyps, cysts, etc. CBC is good. Vitals are good. Bleeding seems to be tapering. ), d/w patient, d/w workday consultant (Dr. Pennington) Departure - Departure Disposition: 01 Home, Self Care Clinical Impression: Dysfunctional uterine bleeding Uterine fibroid Qualifiers: Uterine leiomyoma location: intramural Qualified Code(s): D25.1 - Intramural leiomyoma of uterus Condition: Stable Record reviewed to determine appropriate education?: Yes Instructions: ED Bleed Irregular Vaginal, ED Fibroids Follow-Up: SONIA PLUMMER [Primary Care Provider] - [facility] [Provider Group] Comments: He can use some anti-inflammatories such as ibuprofen or naproxen for cramps or pains. Your ultrasound showed some uterine fibroids which are thickened areas that tend to have more blood flow and bleed more easily during periods. [place] for further recommendation or treatment options. Return if significant persistent bleeding. Drink lots of fluids. Forms: Activity restrictions Discharge Date/Time: 10/16/18 15:49
[2018-10-16] MEDS: SODIUM CHLORIDE 0.9% 1,000 ML IV ONE (13:19)
--- NOTE | 2018-10-16 15:12 | Ultrasound Report ---
Reason: heavy vag bleeding today; irreg periods for months Procedure Date: 10/16/2018 Accession Number: [id number] / [id number] Procedure: US - Pelvic w/Transvaginal CPT Code: FULL RESULT: EXAM: PELVIC ULTRASOUND EXAM DATE: 10/16/2018 02:34 PM. CLINICAL HISTORY: 48-year-old female. Menorrhagia. Heavy vag bleeding today; irregular periods for months. LMP 10/16/2018. . COMPARISON: None. TECHNIQUE: Realtime transabdominal pelvic scan performed to identify the uterus and adnexa and as an overview of other pelvic structures, followed by transvaginal scan to provide greater detail of the uterus and adnexa, with static image documentation. FINDINGS: Transvaginal examination limited because of patient pain. Uterus: 11.7 x 5.7 x 8.0 cm, volume 281 cc. Enlarged, globular, heterogeneous. Anteverted position. Masses: Heterogeneous globular uterus with multiple masses/fibroids, the largest of which are as follows: 1. 1.7 x 1.8 x 2.3 cm posterior fundal intramural. 2. 1.6 x 1.8 x 1.8 cm right lateral fundal intramural. Endometrium: 13 mm. Accounting for somewhat limited visualization, normal echotexture. No abnormal color Doppler vascularity. Cervix: Nabothian cysts. Right Ovary: None identified. Bowel gas noted. Left Ovary: 3.1 x 2.2 x 2.7 cm, volume 9.5 cc. Normal echotexture and blood flow. 2.0 x 1.8 x 2.0 cm dominant simple cyst/follicle. Free Fluid: None. Other: None. IMPRESSION: 1. Mildly enlarged heterogeneous fibroid uterus. No fibroid with definitive submucosal extension is identified, although visualization is limited. 2. Endometrium is normal in thickness for early decidual phase at 13 mm. [facility]
[2018-10-16 15:49] VITALS: BP 122/80
== END 2018-10-16 15:49 | disposition home or self-care (01) ==
LOC: ED 11:05
DX: N93.8 Other specified abnormal uterine and vaginal bleeding (principal); D25.1 Intramural leiomyoma of uterus; E78.00 Pure hypercholesterolemia, unspecified; E03.9 Hypothyroidism, unspecified
CPT/HCPCS: 36415; 76830; 76856; 80053; 81025; 83690; 85025; 86900; 86901; 99283

== ENCOUNTER 2019-02-03 19:02 | Emergency (ER) | payer OTHER ==
[2019-02-03] MEDS ORDERED: SODIUM CHLORIDE 0.9% 1,000 ML IV ONE ×2 (19:19)
--- NOTE | 2019-02-03 19:42 | XRAY Report ---
Reason: cough Procedure Date: 02/03/2019 Accession Number: [id number] / [id number] Procedure: XR - Chest 2 View X-Ray CPT Code: 78463 FULL RESULT: EXAM: CHEST RADIOGRAPHY EXAM DATE: 02/03/2019 07:31 PM. CLINICAL HISTORY: Cough. COMPARISON: CHEST 2 VIEW 07/03/2018 3:09 PM. TECHNIQUE: 2 views. FINDINGS: Lungs/Pleura: No focal opacities evident. No pleural effusion. No pneumothorax. Normal volumes. Mediastinum: Heart and mediastinal contours are unremarkable. Other: Enchondroma noted in the proximal left humerus. IMPRESSION: No acute cardiopulmonary process. [facility]
[2019-02-03 19:50] LABS: BASOPHILS % (AUTO) 0.6 %; EOSINOPHILS # (AUTO) 0.1 10^3/uL (0.0-0.7); LYMPHOCYTES # (AUTO) 1.4 10^3/uL (1.5-3.5); LYMPHOCYTES % (AUTO) 17.7 %; MEAN CORPUSCULAR HEMOGLOBIN 29.3 pg (27.0-31.0); MEAN CORPUSCULAR HGB CONC 34.6 g/dL (32.0-36.0); MEAN CORPUSCULAR VOLUME 84.8 fL (81.0-99.0); MEAN PLATELET VOLUME 6.7 fL (7.9-10.8); MONOCYTES # (AUTO) 0.4 10^3/uL (0.0-1.0); MONOCYTES % (AUTO) 5.3 %; NEUTROPHILS # (AUTO) 5.9 10^3/uL (1.5-6.6); NEUTROPHILS % (AUTO) 75.4 %; PLT - PLATELET COUNT 328 10^3/uL (130-450); RED BLOOD COUNT 4.43 10^6/uL (4.20-5.40); RED CELL DISTRIBUTION WIDTH 14.7 % (12.0-15.0); WHITE BLOOD COUNT 7.8 x10^3/uL (4.8-10.8)
[2019-02-03 20:08] LABS: ALBUMIN 3.8 g/dL (3.2-5.5); ALBUMIN/GLOBULIN RATIO 0.9 (1.0-2.2); BILIRUBIN,TOTAL 0.3 mg/dL (0.2-1.0); CREATININE 0.6 mg/dL (0.4-1.0); MAGNESIUM 1.9 mg/dL (1.7-2.8); PHOSPHORUS 2.5 mg/dL (2.5-4.6); TOTAL PROTEIN 8.2 g/dL (6.7-8.2)
--- NOTE | 2019-02-03 20:22 | ED Physician Documentation ---
History of Present Illness - Stated complaint Stated Complaint: DIZZY AND WEAK - Chief complaint Chief Complaint: General - History obtained from History obtained from: Patient - Additonal information Additional information: Patient is a 48-year-old female with complicated past medical history presenting with multiple complaints. Patient reports that over the past several days she was experiencing a viral-like illness including a fever that has now resolved. Earlier today patient reports feeling lightheaded with near syncope, but no actual syncope, fall, or trauma. Patient reports that she was hydrating and eating well and did not drink alcohol or use other recreational drugs today. Patient reports associated nausea without vomiting, as well as paresthesias to left face and left foot with generalized weakness. Patient denies headache, vision changes, new ear ringing from her baseline, facial droop or speech changes, chest pain, productive cough, abdominal pain, urinary or stool changes. No other improving or worsening factors noted. Review of Systems Constitutional: reports: Fever Cardiac: denies: Chest pain / pressure Respiratory: reports: Dyspnea. denies: Cough GI: reports: Nausea. 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 : Incontinence, Nocturia, Frequency HEENT: None Psych: None Musculoskeletal: None Derm: None - Past Surgical History Past Surgical History: Yes /PROCESS IMPROVEMENT CONSULTANT: Tubal ligation, Other - Present Medications Home Medications: Ambulatory Orders Medication Instructions Recorded Confirmed RX: Levothyroxine [Synthroid] 200 mcg PO QDAC 07/03/18 - Allergies Allergies/Adverse Reactions: Allergies Allergy/AdvReac Type Severity Reaction Status Date / Time meloxicam [From Mobic] Allergy Mild Unknown Verified 02/03/19 19:15 azithromycin [From Zithromax] Allergy Rash Verified 02/03/19 19:15 - Social History Does the pt smoke?: No Smoking Status: Never smoker Does the pt drink ETOH?: Yes Does the pt have substance abuse?: No - Immunizations Immunizations are current?: No Immunizations: TDAP >10years/unknown - POLST Patient has POLST: No POLST Status: Full Code PD ED PE NORMAL - Vitals Vital signs reviewed: Yes - General General: Alert and oriented X 3, No acute distress, Well developed/nourished - HEENT HEENT: Atraumatic, Moist mucous membranes, Pharynx benign - Neck Neck: Supple, no meningeal sign - Cardiac Cardiac: RRR, No murmur - Respiratory Respiratory: No respiratory distress, Clear bilaterally - Abdomen Abdomen: Soft, Non tender, Non distended - Derm Derm: Normal color, Warm and dry, No rash - Extremities Extremities: No deformity, No tenderness to palpate - Neuro Neuro: Alert and oriented X 3, business objects analyst 2-12 intact, No motor deficit, No sensory deficit - Psych Psych: Normal mood, Normal affect Results - Vitals Vitals: Vital Signs - 24 hr 02/03/19 02/03/19 19:08 20:53 Temperature 36.6 C Heart Rate 79 72 Respiratory 18 14 Rate Blood Pressure 121/90 H 136/70 H O2 Saturation 99 99 Oxygen O2 Source Room air - Labs Labs: Laboratory Tests 02/03/19 02/03/19 02/03/19 19:35 19:40 19:40 WBC 7.8 RBC 4.43 Hgb 13.0 Hct 37.6 MCV 84.8 MCH 29.3 MCHC 34.6 RDW 14.7 Plt Count 328 MPV 6.7 L Neut # (Auto) 5.9 Lymph # (Auto) 1.4 L [place] # (Auto) 0.4 Eos # (Auto) 0.1 Baso # (Auto) 0.0 Absolute Nucleated RBC 0.00 Nucleated RBC % 0.0 Sodium 137 Potassium 3.9 Chloride 104 Carbon Dioxide 23 Anion Gap 10.0 BUN 14 Creatinine 0.6 Estimated GFR (MDRD) 106 Glucose 110 H Calcium 9.0 Phosphorus 2.5 Magnesium 1.9 Total Bilirubin 0.3 AST 19 ALT 20 Alkaline Phosphatase 91 Total Protein 8.2 Albumin 3.8 Globulin 4.4 H Albumin/Globulin Ratio 0.9 L Lipase 26 Urine Color YELLOW Urine Clarity CLEAR Urine pH 7.0 Ur Specific [place] <=1.005 Urine Protein NEGATIVE Urine Glucose (UA) NEGATIVE Urine Ketones TRACE Urine Occult Blood NEGATIVE Urine Nitrite NEGATIVE Urine Bilirubin NEGATIVE Urine Urobilinogen 0.2 (NORMAL) Ur Leukocyte Esterase NEGATIVE Ur Microscopic Review NOT INDICATED Urine Culture Comments NOT INDICATED PD MEDICAL DECISION MAKING - ED course Complexity details: reviewed results, re-evaluated patient, considered differential, d/w patient, d/w family ED course: Patient reports recent viral illness which could be contributory to today's complaints. Also have concern for possible vertigo, but patient declines further work-up or treatment for such including CT head and meclizine. Also discussed potential concerns for intracranial injury including stroke given paresthesias to left face and left foot, although atypical for most strokes. No evidence of Jamison's palsy or acute neurological deficit on exam. Additionally, no evidence of trauma. Patient aware of concerns and declined CT head. Screening lab work and urinalysis obtained which returned relatively unremarkable with no signs of infection or other complication. Also wanted to obtain further work-up such as EKG and troponin, however, patient declined. Patient complains of shortness of breath but no other chest pain and therefore feel that ACS, myocardial infarction, unstable angina, PE is less likely, but considered. Patient denies abdominal complaints do not have high suspicion for acute intra-abdominal pathology at this time. Patient was hydrated with IV fluids but did not require other medications and is requesting discharge home at this time despite incomplete work-up. Patient is aware of this and was comfortable with discharge home and outpatient follow-up with primary care physician. At this time, feel that she is capable of making this decision and it is appropriate given lack of suspicion for emergent pathology at this time. Patient and voiced understanding of strict return precautions and need for close follow-up. Departure - Departure Disposition: 01 Home, Self Care Clinical Impression: Vertigo Condition: Good Instructions: ED Near Syncope Unkn, ED Vertigo Unspecified Follow-Up: SONIA PLUMMER [Primary Care Provider] - Within 3 Days Comments: Please continue all home medications as previously instructed. Recommend hydration with Powerade/Gatorade, healthy diet, rest and may try Dramamine or meclizine [id number] for vertigo-like symptoms. Please follow-up with your primary care physician in next 2 to 3 days and return to ED sooner if expands worsening symptoms or other concerns. Forms: Activity restrictions Discharge Date/Time: 02/03/19 20:53
[2019-02-03 20:24] LABS: BILIRUBIN,URINE NEGATIVE (NEGATIVE); GLUCOSE, URINE (UA) NEGATIVE (NEGATIVE); KETONES,URINE (UA) TRACE mg/dL (NEGATIVE); LEUKOCYTE ESTERASE, URINE NEGATIVE (NEGATIVE); NITRITE,URINE NEGATIVE (NEGATIVE); OCCULT BLOOD,URINE NEGATIVE (NEGATIVE); PROTEIN,URINE NEGATIVE (NEGATIVE); UROBILINOGEN,URINE 0.2 (NORMAL) E.U./dL (NORMAL)
[2019-02-03 20:25] LABS: CLARITY,URINE CLEAR (CLEAR)
[2019-02-03 20:54] VITALS: BP 136/70
== END 2019-02-03 20:53 | disposition home or self-care (01) ==
LOC: ED 19:02
DX: R42 Dizziness and giddiness (principal); R11.0 Nausea; R20.2 Paresthesia of skin; R06.02 Shortness of breath
CPT/HCPCS: 36415; 71046; 80053; 81001; 81003; 83690; 83735; 84100; 85025; 87086; 99283

== ENCOUNTER 2019-06-01 11:58 | Emergency (ER) | payer OTHER ==
[2019-06-01 12:07] VITALS: BP 131/86
[2019-06-01] MEDS ORDERED: CHERRY SYRUP 10 ML UDC PO ONE (12:27)
[2019-06-01] MEDS ORDERED: DEXAMETHASONE 10 MG/ML VIAL PO STA (12:27)
[2019-06-01] MEDS ORDERED: PSEUDOEPHEDRINE 30 MG TABLET PO STA (12:27)
--- NOTE | 2019-06-01 12:30 | ED Physician Documentation ---
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 She states that she has had a dry cough, congestion, sore throat for the past 3 to 4 days. Saw her doctor and states was told it was a virus. She states she is feeling worse. Is not taking anything at home for this. 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 : Incontinence, Nocturia, Frequency HEENT: None Psych: None Musculoskeletal: None Derm: None - Past Surgical History Past Surgical History: Yes /HEART NURSE: Tubal ligation, Other - Present Medications Home Medications: Ambulatory Orders Medication Instructions Recorded Confirmed Levothyroxine [Synthroid] 200 mcg PO QDAC 07/03/18 Pseudoephedrine HCl [12 Hour Nasal 120 mg PO Q12H PRN #14 tablet.er 06/01/19 Decongestant] - Allergies Allergies/Adverse Reactions: Allergies Allergy/AdvReac Type Severity Reaction Status Date / Time meloxicam [From Mobic] Allergy Mild Unknown Verified 06/01/19 12:02 azithromycin [From Zithromax] Allergy Rash Verified 06/01/19 12:02 cetirizine [From Zyrtec] AdvReac Unknown Verified 06/01/19 12:55 - Social History Does the pt smoke?: No Smoking Status: Never smoker Does the pt drink ETOH?: Yes Does the pt have substance abuse?: No - Immunizations Immunizations are current?: No Immunizations: TDAP >10years/unknown - POLST Patient has POLST: No POLST Status: Full Code PD ED PE NORMAL - Vitals Vital signs reviewed: Yes - General General: Alert and oriented X 3, No acute distress - HEENT HEENT: Ears normal, Moist mucous membranes, Pharynx benign - Neck Neck: Supple, no meningeal sign, No adenopathy - Cardiac Cardiac: RRR, Strong equal pulses - Respiratory Respiratory: No respiratory distress, Clear bilaterally - Abdomen Abdomen: Soft, Non tender, Non distended - Derm Derm: Warm and dry, No rash - Neuro Neuro: Alert and oriented X 3 Results - Vitals Vitals: Vital Signs - 24 hr 06/01/19 12:02 Temperature 36.7 C Heart Rate 88 Respiratory 16 Rate Blood Pressure 131/86 H O2 Saturation 99 Oxygen O2 Source Room air - Labs Labs: Laboratory Tests 06/01/19 12:06 Group A Strep Rapid Negative PD MEDICAL DECISION MAKING - ED course Complexity details: reviewed results, considered differential, d/w patient ED course: 48-year-old female that appears to be viral upper respiratory infection. She is very well-appearing, nontoxic. Afebrile. Rapid strep is negative. We will continue supportive care and follow-up with her doctor. Patient counseled regarding signs and symptoms for which I believe and urgent re-evaluation would be necessary. Patient with good understanding of and agreement to plan and is comfortable going home at this time This document was made in part using voice recognition software. While efforts are made to proofread this document, sound alike and grammatical errors may occur. Departure - Departure Disposition: 01 Home, Self Care Clinical Impression: Viral syndrome Condition: Good Instructions: ED Viral Syndrome Follow-Up: your,doctor in 1 week [Other] Prescriptions: Pseudoephedrine HCl [12 Hour Nasal Decongestant] 120 mg PO Q12H PRN #14 tablet.er PRN Reason: nasal congestion Comments: Use the medications as prescribed. Return if you worsen. Drink plenty of fluids and rest. Discharge Date/Time: 06/01/19 13:07
[2019-06-01] MEDS: CETIRIZINE 10 MG TABLET PO STA ×2 (12:47→12:51)
== END 2019-06-01 13:07 | disposition home or self-care (01) ==
LOC: ED 11:58
DX: J06.9 Acute upper respiratory infection, unspecified (principal); B34.9 Viral infection, unspecified
CPT/HCPCS: 87070; 87077; 87430; 99283; 99284; A9270

== ENCOUNTER 2019-07-05 14:32 | Emergency (ER) | payer OTHER ==
[2019-07-05 14:48] VITALS: BP 128/79
--- NOTE | 2019-07-05 15:03 | ED Physician Documentation ---
History of Present Illness - Stated complaint Stated Complaint: BACK/RIB/NECK PX - Chief complaint Chief Complaint: Back Pain - Additonal information Additional information: This is a 48-year-old female who presents with some pain in her back and neck. 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 She saw her primary care provider who prescribed her Toradol but she found out she had a allergy to Toradol so she went back to primary care prescribed her methocarbamol, she took 1 dose of this and had some hives, so stopped taking it. She presents to the emergency department for further evaluation. She denies any bowel or bladder incontinence, retention. No numbness or weakness. She denies any trauma to her back. No history of cancer. 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 : Incontinence, Nocturia, Frequency HEENT: None Psych: None Musculoskeletal: None Derm: None - Past Surgical History Past Surgical History: Yes /REFINING MACHINE OPERATOR: Tubal ligation, Other - Present Medications Home Medications: Ambulatory Orders Medication Instructions Recorded Confirmed Levothyroxine [Synthroid] 200 mcg PO QDAC 07/03/18 Pseudoephedrine HCl [12 Hour Nasal 120 mg PO Q12H PRN #14 tablet.er 06/01/19 Decongestant] Cyclobenzaprine [Flexeril] 10 mg PO TID PRN #20 tablet 07/05/19 Oxycodone HCl/Acetaminophen 1 - 2 each PO Q6H PRN #7 tablet 07/05/19 [Percocet 5-325 mg Tablet] - Allergies Allergies/Adverse Reactions: Allergies Allergy/AdvReac Type Severity Reaction Status Date / Time meloxicam [From Mobic] Allergy Mild Unknown Verified 06/01/19 12:02 azithromycin [From Zithromax] Allergy Rash Verified 06/01/19 12:02 ketorolac [From Toradol] Allergy Hives Verified 07/05/19 14:48 cetirizine [From Zyrtec] AdvReac Unknown Verified 06/01/19 12:55 - Social History Does the pt smoke?: No Smoking Status: Never smoker Does the pt drink ETOH?: Yes Does the pt have substance abuse?: No - Immunizations Immunizations are current?: No Immunizations: TDAP >10years/unknown - POLST Patient has POLST: No POLST Status: Full Code Results - Vitals Vitals: Oxygen O2 Source Room air - EKG (time done) 15:34 Other comments: Other comments (Rate 85, rhythm sinus, there is no ST segment elevation or depression, no abnormal T wave inversions. Borderline low voltage in extremity leads.) PD MEDICAL DECISION MAKING - ED course Complexity details: considered differential ED course: Pt presents with back pain, she has reproducible paraspinous muscle tenderness. No neurologic abnormalities on exam, no red flag symptoms such as weakness, numbness, difficulty using the bathroom, fever, history of cancer. The location of her pain is extremely atypical for cardiac issues, EKG was obtained and shows no signs of ischemia or dysrhythmia. PERC negative, and history makes PE extremely unlikely. I discussed supportive care, close PCP follow up. I prescribed flexeril and a smalll number of percocet with instructions not to combine them and to use the percocet sparingly and only if non-narcotic medications were ineffective. Return precautions reviewed and patient was discharged home. Departure - Departure Disposition: 01 Home, Self Care Clinical Impression: Back pain Qualifiers: Back pain location: thoracic back pain Chronicity: unspecified Back pain laterality: bilateral Qualified Code(s): M54.6 - Pain in thoracic spine Condition: Good Instructions: ED Neck Back Pain General Follow-Up: AYAD DECKER ARNP [Primary Care Provider] - Within 1 week Prescriptions: Cyclobenzaprine [Flexeril] 10 mg PO TID PRN #20 tablet PRN Reason: Spasms Oxycodone HCl/Acetaminophen [Percocet 5-325 mg Tablet] 1 - 2 each PO Q6H PRN #7 tablet PRN Reason: pain Comments: You were seen today for pain in your back. Please try ibuprofen, Tylenol, and Flexeril for your pain. If this is not effective, you may try the Percocet. Do not combine the Percocet and Flexeril together at the same time, as they are both sedating medications. If you are having worsening symptoms Including weakness in your legs, fever, numbness, or any difficulty going to the bathroom or incontinence, return to the emergency department immediately. Discharge Date/Time: 07/05/19 15:49
== END 2019-07-05 15:49 | disposition home or self-care (01) ==
LOC: ED 14:32
DX: M54.6 Pain in thoracic spine (principal); M54.2 Cervicalgia; Z88.8 Allergy status to other drugs, medicaments and biological substances
CPT/HCPCS: 93005; 99283; 99284